=== PATIENT | male | born 1995 | race Caucasian/White ===

== ENCOUNTER 2019-05-18 00:37 | Emergency (ER) | payer MEDICAID ==
[~2019-05-18] VITALS: Ht 180.3 cm; Wt 81.8 kg
[~2019-05-18 00:37] MED LIST: NO HOME MEDS
--- NOTE | 2019-05-18 01:13 | NUR ---
PT TO CT SCAN VIA WHEELCHAIR ACCOMPANIED BY TECH
--- NOTE | 2019-05-18 01:19 | NUR ---
BACK FROM CT SCAN IN STABLE CONDITION
[2019-05-18] MEDS ORDERED: bacitracin 15gm ointment TP ONE (01:40)
[2019-05-18 02:01] VITALS: BP 130/70
== END 2019-05-18 02:03 | disposition home or self-care (01) ==
LOC: ER 00:37
DX: S01.01XA Laceration without foreign body of scalp, initial encounter (principal); F10.129 Alcohol abuse with intoxication, unspecified; F12.90 Cannabis use, unspecified, uncomplicated; Z98.890 Other specified postprocedural states; Y04.0XXA Assault by unarmed brawl or fight, initial encounter; Y93.89 Activity, other specified; Y92.89 Other specified places as the place of occurrence of the external cause; Y99.8 Other external cause status
CPT/HCPCS: 70450; 99284

== ENCOUNTER 2019-05-18 20:17 | Emergency (ER) | payer MEDICAID ==
[~2019-05-18] VITALS: Ht 177.8 cm; Wt 81.8 kg
[2019-05-18 20:19] VITALS: BP 119/69
== END 2019-05-18 21:19 | disposition home or self-care (01) ==
LOC: ER 20:18
DX: S40.022A Contusion of left upper arm, initial encounter (principal); F12.90 Cannabis use, unspecified, uncomplicated; Z98.890 Other specified postprocedural states; V19.88XA Pedal cyclist (driver) (passenger) injured in other specified transport accidents, initial encounter; Y93.55 Activity, bike riding; Y92.413 State road as the place of occurrence of the external cause; Y99.9 Unspecified external cause status
CPT/HCPCS: 73090; 99283

== ENCOUNTER 2019-12-01 23:54 | Emergency (ER) | payer MEDICAID ==
[~2019-12-01] VITALS: Ht 177.8 cm; Wt 68.0 kg
[2019-12-02] MEDS ORDERED: CEPH500C5 PO (00:28)
[2019-12-02 00:59] VITALS: BP 118/79
== END 2019-12-02 01:00 | disposition home or self-care (01) ==
LOC: ER 23:54
DX: L03.116 Cellulitis of left lower limb (principal); M79.671 Pain in right foot; F12.90 Cannabis use, unspecified, uncomplicated; F15.90 Other stimulant use, unspecified, uncomplicated; F17.200 Nicotine dependence, unspecified, uncomplicated; Z98.890 Other specified postprocedural states
CPT/HCPCS: 99283